=== PATIENT | female | born 1995 | race Caucasian/White ===

== ENCOUNTER 2021-07-05 17:46 | Outpatient (CLI) | payer BC, SELFPAY | END 2021-07-05 19:10 | disposition home or self-care (01) | LOC: ANHOBOP 18:43 → ANHLDR 18:50 | PROVIDERS: Visit Provider Student in an Organized Health Care Education/Training Program | DX: O42.90 Premature rupture of membranes, unspecified as to length of time between rupture and onset of labor, unspecified weeks of gestation (principal); Z3A.00 Weeks of gestation of pregnancy not specified | CPT/HCPCS: 59025; 84112; 99199 ==

== ENCOUNTER 2021-07-10 05:42 | Inpatient (IN) | payer BC, SELFPAY ==
[2021-07-10] VITALS (124 sets, daily range): BP systolic 96–131; BP diastolic 43–87; PULSE 39–147; RESP 16; TEMP 36.3–36.9; O2SAT 81–100; BMI 44.4
[2021-07-10] MEDS: LACTATED RINGERS 1,000 ML 125 ML IV CONT ×2 (07:00→08:08)
[2021-07-10] MEDS: AMPICILLIN 2 GM/NS 100 ML 2 GM/100 ML BAG IVPB (07:01)
--- NOTE | 2021-07-10 07:05 | PM.IMHP ---
H&P: HPI History of Present Illness Date/Time: 07/10/21 07:05 Chief Complaint: premature rupture of membranes Narrative: 25 yo at 35w3d who presents with premature rupture of membranes. Pt states her water broke at 0500. She reports regular contractions. She denies any vaginal bleeding. She denies any abdominal pain, fevers, chlls, nause, vomiting. She endorses good movement. Her has been uncomplicated thus far. Review of Systems Cardiovascular: Cardiovascular: Denies chest pain, Denies leg edema, Denies palpitations, Denies dyspnea and Denies dyspnea on exertion Respiratory: Respiratory: Denies cough, Denies dyspnea and Denies dyspnea on exertion Gastrointestinal: Gastrointestinal: Denies abdominal pain, Denies constipation, Denies diarrhea, Denies nausea and Denies vomiting Genitourinary: Genitourinary: Denies hematuria, Denies urinary frequency, Denies dysuria, Denies pelvic pain, Denies urinary incontinence and Denies vaginal discharge Neurologic: Reports system reviewed and no additional complaints, except as documented Psychiatric: Psychiatric: Reports no additional psychiatric complaints Endocrine: Endocrine: Denies palpitations Meds Home Medications and Allergies Allergies Allergy/AdvReac Type Severity Reaction Status Date / Time nickel Allergy Unknown Verified 07/18/15 21:35 Exam Const: General: no acute distress Eyes: EOM: EOMs intact bilaterally Neck: Neck: supple Thyroid: thyroid normal Chest: Breast/axilla inspection: normal inspection of the breasts Breast/axilla palpation: normal palpation of the breasts, normal palpation of the axillae and no axillary lymphadenopathy Resp: Effort & Inspection: normal respiratory effort Auscultation: clear to auscultation bilaterally Cardio: Rate: regular rate Rhythm: regular rhythm GI: Inspection: non-distended and other (Gravid) GI Palp: Yes Soft to palpation, No Tenderness to palpation present (GI) and No Guarding due to palpation present (GI) Auscultation: normal bowel sounds : Speculum Exam - Vagina: No vaginal bleeding OB/external & speculum: external exam normal; No vaginal bleeding Skin: General skin exam: normal color and no rashes or lesions noted Neuro: Cognition (Neuro): normal cognition Speech: normal speech Extrem: General: normal to inspection Psych: Mental Status: mental status grossly normal Affect: normal affect Assessment and Plan Assessment and plan (1) Supervision of high risk , unspecified, third trimester: Code(s): O09.93 - Supervision of high risk , unspecified, third trimester Status: Acute Assessment and Plan: 25 yo G1 at 35w3d labs wnl Rh+ GBS unknown, will administer abx FHT cat 1 regular ctx on toco (2) premature rupture of membranes: Code(s): O42.919 - premature rupture of membranes, unspecified as to length of time between rupture and onset of labor, unspecified trimester Status: Acute Assessment and Plan: pt reports ROM at 0500 afebrile, abdomen non-tender will start latency antibiotics, azithromycin and ampicillin will administer BTMS for lung maturity will not administer any tocolytics at this time if patient is still after two rounds of BTMS will consider augmentation. continuous EFM (3) Obesity affecting : Code(s): O99.210 - Obesity complicating , unspecified trimester Status: Acute Assessment and Plan: prepregnancy BMI of 41
[2021-07-10] MEDS: fentaNYL CITRATE INJ (*CRX) 100 MCG/2 ML VIAL 50 MCG IV PUSH ×2 (07:07→07:22)
[2021-07-10] MEDS: BETAMETHASONE SOD PHOS/ACETATE 30 MG/5 ML VIAL 12 MG IM (07:08)
[2021-07-10 07:12] LABS: Basophils Percent Auto 0.3 % (0.2-1.2); Eosinophils Absolute Auto 0.1 K/mm3 (0-0.3); Eosinophils Percent Auto 1.5 % (0-4.4); Hematocrit 37.6 % (37.0-47.0); Immature Granulocyte Absolute 0.05 K/mm3 (0.00-0.031); Immature Granulocyte Percent A 0.5 % (0-0.5); Lymphocytes Absolute Auto 1.72 K/mm3 (0.9-3.2); Mean Corpuscular HGB Conc 34.6 g/dl (32-36); Mean Corpuscular Hemoglobin 31.7 pg (26-34); Mean Corpuscular Volume 91.7 fl (80-100); Mean Platelet Volume 9.8 fl (7.4-10.4); Monocytes Absolute Auto 0.5 K/mm3 (0.1-0.6); Monocytes Percent Auto 5.3 % (2.6-8.5); Neutrophils Absolute Auto 7.1 K/mm3 (1.3-6.7); Neutrophils Percent Auto 74.4 % (45.5-73.1); Platelet Count Result 164 k/mm3 (150-375); Red Cell Distribution Width 13.1 % (11.5-14.5); White Blood Count 9.6 K/mm3 (4.5-10.0)
--- NOTE | 2021-07-10 07:35 | LDADM ---
This patient, Gaby Walters, was admitted to Labor/Delivery/Recovery 107 on 07/10/21 at 05:42. Plans for labor, pain management and were discussed with patient. Patient/family oriented to hospital policies and general routines including ID bracelet, bed and alarms, visiting hours, pain management, procedures, bathroom and other care routines, personal items, smoking policy, room service/diet and guest tray routines, security routines, and visiting hours. Patient/Family are encouraged to report perceived risks to care and to ask questions if they do not understand what they are told or what they should do. See [facility] for further documentation.
[2021-07-10] MEDS: AZITHROMYCIN 250 MG TABLET 1000 MG PO (08:10)
[2021-07-10] MEDS: AMPICILLIN 1 GM/NS 50 ML 1 GM/50 ML BAG IVPB (11:03)
[2021-07-10] MEDS: ONDANSETRON INJ 4 MG/2 ML VIAL IV PUSH (11:17)
--- NOTE | 2021-07-10 14:29 | PM.OBPRVD ---
OB - Delivery Note Procedure Delivery date: 07/10/21 Procedure: Patient pushed for a spontaneous vaginal delivery. The fetus was delivered atraumatically and placed on the maternal abdomen. The cord was clamped and cut after 1 minute of life. The cord was double clamped and cut and a segment of cord was collected for cord gases. Cord blood was collected for blood type and Coomb's testing. The placenta delivered spontaneously and was noted to be intact. The perineum was inspected and there were no lacerations noted. The uterus was firm and good hemostasis was noted. The patient and fetus were stable in the delivery room. Events: Premature Rupture of Membranes Induction method: None Delivery monitor: External FHT and External Uterine Route of delivery: Episiotomy description: None Laceration Description: None Specimen: No Quantitative Blood Loss (ml): 150 Anesthesia type: Epidural Disposition: floor () Complications: No immediate complications [place] Baby Date of : 07/10/21 Time of : 14:17 Weeks of gestation at delivery: 35 gender: Male Weight (pounds): 6 Weight (ounces): 12 presentation: vertex position: Right Occiput Anterior Placenta delivery description: Spontaneous Cord Vessel Description: 3 Vessels score one minute: 8 score five minutes: 9
[2021-07-10] MEDS: WITCH HAZEL 40 PADS 1 PAD TOPICAL (16:36)
[2021-07-10] MEDS: IBUPROFEN 600 MG TABLET PO (18:50)
[2021-07-11] VITALS: BP 116/80; PULSE 98; RESP 16; TEMP 36.8; O2SAT 97
[2021-07-11] MEDS: IBUPROFEN 600 MG TABLET PO ×2 (00:45→07:57)
[2021-07-11 04:40] VITALS: BP 114/73; PULSE 83; RESP 16; TEMP 36.9; O2SAT 100
--- NOTE | 2021-07-11 04:44 | PC.NURSE ---
This patient, Gaby Walters, was received from L&D on 07/10/21 at 1807. Patient/family oriented to unit policies and routines
[2021-07-11 04:55] LABS: Hematocrit 32.4 % (37.0-47.0); Hemoglobin 11.3 g/dL (12.0-15.0)
--- NOTE | 2021-07-11 07:12 | WPDANLDPN2 ---
Anes-Prog Note L&D Date/Time: 07/11/21 07:12 Comfortable throughout: labor and delivery Neuraxial method: epidural Epidural/Spinal procedure site: clean & non-tender Neuro status: Neuro function grossly intact. Cardiovascular status: normal Respiratory status: normal Airway patency: baseline Mental status: baseline Post-Op hydration status: normal Vital Signs: Last Vital Signs Temp 36.9 C 07/11/21 04:40 Pulse 83 07/11/21 04:40 Resp 16 07/11/21 04:40 BP 114/73 07/11/21 04:40 Pulse Ox 100 07/11/21 04:40 Pain score (VAS): 05/30 I/O: Intake & Output 07/10/21 07/10/21 07/11/21 15:59 23:59 07:59 Intake Total 1100 Output Total 150 Balance 950 Post-procedural complaints: none Patient feedback: Patient satisfied with anesthetic care.
[2021-07-11 07:15] LABS: Rapid Plasma Reagin Non-Reactive (NonReactive)
--- NOTE | 2021-07-11 07:26 | PM.OBDSVD ---
DS: Admitting Diagnosis Discharge Date 07/11/21 Admitting Diagnosis premature rupture of membranes OB - DS: Summary OB Procedures : None OB Procedures Intrapartum: Spontaneous Vag Delivery OB Procedures: : None Status at Discharge Functional status at discharge: independent ambulation Overall status at discharge: patient is back to baseline Time Spent with Patient Time attestation: Total time spent providing and/or coordinating discharge services: Time spent: Less than 30 minutes Exam Const: General: comfortable and no acute distress Resp: Effort & Inspection: normal respiratory effort Auscultation: clear to auscultation bilaterally Cardio: Rate: regular rate GI: GI Palp: Yes Soft to palpation Auscultation: normal bowel sounds Other: Fundus firm below umbilicus Psych: Appearance: grossly normal Mental Status: mental status grossly normal Affect: normal affect DS: Data Data Completed and Pending Labs on day of discharge: Labs from last 24 hours 07/11/21 07/10/21 07/10/21 04:31 06:58 06:58 Hgb 11.3 L Hct 32.4 L RPR Non-reactive Blood Type B Positive Antibody Screen Negative Discharge Plan Discharge Discharging Clinician: Dominic Jones Patient Disposition: Home, Self-Care Activity: as tolerated and pelvic rest Diet: regular Patient Instructions: Antibiotic Form, Vaginal Delivery (DC) Stand Alone Forms: General Discharge Information Follow-up/Referrals: Dominic Jones MD [Physician] - 4 Weeks Discharge Medications: New ibuprofen 600 mg Tablet 600 mg PO Q6H PRN (Reason: Cramping) Qty: 30 RF: 0 acetaminophen [Mapap (acetaminophen)] 325 mg Tablet 650 mg PO Q6H PRN (Reason: Mild Pain (1-3) Or Headache) Qty: 30 RF: 0 Continued Vitamin Tablet 1 tablet PO DAILY RF: 0 Date of admission: 07/10/21 05:42 Primary Care Provider: PHYSICIAN NOT ON STAFF,NONSTAFF Admitting Provider: Dominic Jones Attending physician on admission: Dominic Jones Condition: Stable
[2021-07-11 07:45] VITALS: BP 126/79; PULSE 93; RESP 16; TEMP 36.9; O2SAT 98
[2021-07-11] MEDS: DOCUSATE SODIUM 100 MG CAPSULE PO (07:57)
[2021-07-11] MEDS: MULTIVIT/MIN/PREN/FOL AC/IRON TABLET 1 TAB PO (07:57)
--- NOTE | 2021-07-11 08:00 | PC.NURSE ---
0730 - Introductions were made and mother led the conversation with regards to her experience pumping to feed her baby. Reminded parents to use good handwashing to prevent infection. Mother states she feels confident to continue pumping for her infant at [facility]. Reviewed production of human milk, transition of milk, signs of adequate intake and engorgement prevention/relief and when to call the care provider using the mom and baby guide. Reviewed community resources and outpatient services as listed in the mom and baby guide/[facility] website. Mother voiced understanding of information shared. Reported to primary RN.
--- NOTE | 2021-07-11 08:19 | PC.NURSE ---
Patient instructed on viewing the discharge video Mother & Baby Care, The First Two Weeks . Patient was given the opportunity and encouraged to ask questions. Patient verbalized understanding of information shared and has been given the mother/baby guide for home reference.
[2021-07-12 09:38] VITALS: BP 114/72; PULSE 87; RESP 20; TEMP 37.1; O2SAT 99
== END 2021-07-11 08:45 | disposition home or self-care (01) | DRG 805 ==
LOC: ANHLDR 06:33 → ANHOB2 18:58
PROVIDERS: Admitting Provider Student in an Organized Health Care Education/Training Program; Visit Provider Student in an Organized Health Care Education/Training Program
DX: O42.913 Preterm premature rupture of membranes, unspecified as to length of time between rupture and onset of labor, third trimester (principal); O60.14X0 Preterm labor third trimester with preterm delivery third trimester, not applicable or unspecified; Z37.0 Single live birth; Z3A.35 35 weeks gestation of pregnancy; Z23 Encounter for immunization; O99.214 Obesity complicating childbirth; E66.9 Obesity, unspecified
CPT/HCPCS: 36415; 85014; 85018; 85025; 86592; 86850; 86900; 86901; 90471; 90653; A9270; G0008; J0290; J0702; J2405; J2795; J3010; J7120